=== PATIENT | female | born 1960 | race Caucasian/White ===

== ENCOUNTER 2024-11-21 13:00 | Outpatient (CLI) | payer OTHER ==
[2024-11-21 13:43] LABS: Estimated GFR - POC 72.0
== END 2024-11-21 13:01 | disposition home or self-care (01) ==
LOC: SCSMRI 13:00
PROVIDERS: ATTEND Orthopaedic Surgery
DX: M51.27 Other intervertebral disc displacement, lumbosacral region (principal); M47.816 Spondylosis without myelopathy or radiculopathy, lumbar region; M47.817 Spondylosis without myelopathy or radiculopathy, lumbosacral region; M48.061 Spinal stenosis, lumbar region without neurogenic claudication; M51.369 Other intervertebral disc degeneration, lumbar region without mention of lumbar back pain or lower extremity pain; M51.379 Other intervertebral disc degeneration, lumbosacral region without mention of lumbar back pain or lower extremity pain; M89.9 Disorder of bone, unspecified
CPT/HCPCS: 36415; 72158; 82565